=== PATIENT | female | born 1960 | race Caucasian/White ===

== ENCOUNTER 2020-05-27 05:38 | Inpatient (IN) ==
--- OUTSIDE RECORDS SUMMARY | 2020-05-27 05:41 | External Medical Summary | Continuity of Care Document ---
:1960 Author Name Jackie Daniels, Provider Address Unavailable Unavailable , Care Team Providers Name Role Phone Eduin Daniels, [email or web address] Desirae Daniels, Art Unavailable [email or web address] JINA REBOLLAR Unavailable Unavailable Unavailable Unavailable Unavailable Assessments Assessed Problems:Inflamed seborrheic keratosisSeborrheic keratosisAngioma Sebaceous hyperplasia Problems Encounter for routine gynecological exam ination with Papanicolaou smear of cervix (V72.31) (Z01.419) Severe cervical dysplasia (233.1) (D06.9) Fecal soiling (787.62) (R15.1) Positive sm/[employer] antibody (795.79) (R76.8) Classic migraine with aura (346.00) (G43.109) Depression (311) (F32.9) Postmenopausal disorder (627.9) (N95.1) Positive TAINA (antinuclear antibody) (795.79) (R76.8) Mixed connective tissue disease (710.8) (M35.1) Long-term use of hydroxychloroquine (V58.69) (Z79.899) Long-term current use of steroids (V58.65) Rosacea (695.3) (L71.9) Inflamed seborrheic keratosis (702.11) (L82.0) Seborrheic keratosis (702.19) (L82.1) Angioma (228.00) (D18.00) Sebaceous hyperplasia (706.8) (L73.8) Allergies and Adverse Reactions Sulfa Drugs (Allergy) Medications Hydroxychloroquine Sulfate 200 MG Oral Tablet; Take 1 tablet twice daily Jeremiah Denny Quantity: 180 Refills: 1 predniSONE 1 MG Oral Tablet; TAKE 4 TABLETS DAILY. Kiki Denny Quantity: 360 Refills: 1 Metrogel 0.75 % GEL; APPLY AND RUB IN A THIN FILM TO AFFECTED AREAS TWICE DAILY.(AM AND PM). Refills: 0 Premarin 0.625 MG/GM Vaginal Cream Refills: 0 Cymbalta 60 MG Oral Capsule Delayed Release Particles; TAKE 1 CAPSULE Daily Refills: 0 Fosamax 70 MG Oral Tablet Refills: 0 raNITIdine HCl 300 MG TABS Refills: 0 Tylenol TABS Refills: 0 Vitamin E TABS Refills: 0 Procedures History of Hysteroscopy With Endometrial Ablation Status: Completed History of Tubal Ligation Status: Comple diana History of Cervical Loop Electrosurgical Excision (LEEP) Status: Completed History of Cervix Cryosurgery Status: Co mpleted History of Laparoscopy (Diagnostic) Gynecologic With Biopsy Status: Completed History of Tonsillectomy Status: Complet ed History of Breast Surgery Enlargement Procedure With Prosthe tic Status: Completed Implant History of Complete Colonoscopy For Polyp Removal Status: Completed History of Episiotomy Status: Completed Immunizations Tdap (Adacel) On: 03-Oct-2007 Fluzone Quadrivalent 0.5 ML Intramuscular Suspension On: Feb-2016 Family History natural son Family history of Type 2 Diabetes Mellitus Status: Active Unknown Family Member Family history of Colon Cancer (V16.0) Status: Active C omments: Family History Social History - Smoking Status Ex-smoker Interventions Follow-ups/ReferralsFollow-up visit in 1 year; Done: 19 Jun 2018 Discussion/Summary1) ISK - Treated \{12\} lesions with liquid nitrogen today as above. Advised patient to wash gently with soap and water and apply vaseline to treated sites daily until healed. 2) Patient counseled and reassured on the benign nature of other lesions. No treatment needed. 3) I counseled the patient regarding the following: - Sunscreen (SPF 30 or greater) should be applied during peak UV exposure (between 10am and 2pm) and reapplied every 2 hours. It should also be reapplied after exercise or swimming. - The ABCDEs of melanoma were reviewed with the patient, and the importance of monthly self-examination of moles was emphasized. Should any moles change in shape or color, or itch, bleed or burn, patient will contact our office for evaluation sooner than their interval appointment. - Advised patient to call for sooner appointment if any lesions develop that are rapidly growing, bleeding or painful without manipulation, or not healing. \highlight0 Plan of Treatment Planned Observations Planned Goals not documented Results No Known Results Results not documented Encounters Appointment; Art Merrill M.D. 19-Jun-2018 10:30 Encounter Diagnosis: Problem not documented
--- OUTSIDE RECORDS SUMMARY | 2020-05-27 05:41 | External Medical Summary | Continuity of Care Document ---
:1960 Author Name Jackie Daniels, Provider Address Unavailable Unavailable , Care Team Providers Name Role Phone Eduin Daniels, [email or web address] Desirae Daniels, Art Unavailable [email or web address] JINA REBOLLAR Unavailable Unavailable Unavailable Unavailable Unavailable Assessments Assessed Problems:Inflamed seborrheic keratosisSeborrheic keratosisAngioma Sebaceous hyperplasia Problems Classic migraine with aura (346.00) (G43.109) Depression (311) (F32.9) Postmenopausal disorder (627.9) (N95.1) Positive TAINA (antinuclear antibody) (795.79) (R76.8) Mixed connective tissue disease (710.8) (M35.1) Long-term use of hydroxychloroquine (V58.69) (Z79.899) Long-term current use of steroids (V58.65) Rosacea (695.3) (L71.9) Encounter for routine gynecological exam ination with Papanicolaou smear of cervix (V72.31) (Z01.419) Severe cervical dysplasia (233.1) (D06.9) Fecal soiling (787.62) (R15.1) Positive sm/[employer] antibody (795.79) (R76.8) Inflamed seborrheic keratosis (702.11) (L82.0) Seborrheic keratosis (702.19) (L82.1) Angioma (228.00) (D18.00) Sebaceous hyperplasia (706.8) (L73.8) Allergies and Adverse Reactions Sulfa Drugs (Allergy) Medications Metrogel 0.75 % GEL; APPLY AND RUB IN A THIN FILM TO AFFECTED AREAS TWICE DAILY.(AM AND PM). Refills: 0 predniSONE 1 MG Oral Tablet; TAKE 4 TABLETS DAILY. Kiki Denny Quantity: 360 Refills: 1 Hydroxychloroquine Sulfate 200 MG Oral Tablet; Take 1 tablet twice daily Jeremiah Denny Quantity: 180 Refills: 1 Premarin 0.625 MG/GM Vaginal Cream Refills: 0 [...]
[2020-05-27] MEDS ORDERED: SODIUM CHLORIDE 0.9% 1000ML 1,000 ML IV ONE ×2 (05:59→07:46)
[2020-05-27] MEDS ORDERED: ONDANSETRON INJ 2 MG/ML 2 ML VIAL IV STA (05:59)
[2020-05-27] MEDS ORDERED: MoRPHine SULFATE 4 MG/ML 1 ML CARP\\VIAL IV STA (05:59)
--- NOTE | 2020-05-27 06:11 | Emergency Department Note ---
History of Present Illness General Chief complaint: Vomiting Stated complaint: VOMITING,PAIN IN BACK,SIDE AND ARM,RT FOOT NUMB Time Seen by Provider: 05/27/20 05:47 Source: patient Mode of arrival: ambulatory Limitations: no limitations History of Present Illness Maximum Pain Intensity: 8 This patient is a 60-year-old female who presents to the emergency department complaining of pain in her abdomen and back. She states that the pain started yesterday evening, about 9 hours prior to arrival. Pain came on gradually. She states that initially the pain felt like heartburn in her upper abdomen. She tried Tums and Pepcid without relief. She reports that her pain now feels like a cramping sensation in her upper abdomen which comes and goes. She has a 3/10 pain at this time but states it does worsen at times. Pain radiates into the back. She does note that she had some right arm pain and some numbness/cramping in her right foot. Patient reports she had a similar episode of pain several years ago but is unsure what caused it. She has a past medical history of lupus. She does admit to drinking 2-3 alcoholic beverages per day. She denies chest pain/shortness of breath, fevers, urinary symptoms or changes in bowel movements. Home Medications Medication Instructions Recorded Confirmed Type duloxetine 60 mg capsule,delayed 60 mg PO DAILY #30 cap 02/12/19 05/27/20 Rx release ergocalciferol (vitamin D2) 1,250 mcg PO WK 05/27/20 05/27/20 History famotidine 20 mg PO BID 05/27/20 05/27/20 History hydroxychloroquine See Rx Instructions .ROUTE .COMPLEX 05/27/20 05/27/20 History Allergies Allergy/AdvReac Type Severity Reaction Status Date / Time Sulfa (Sulfonamide Allergy Unknown Unknown Verified 05/27/20 08:55 Antibiotics) Past Med/Surg History Medical History (Updated 05/27/20 @ 09:00 by Elis Jenkins PA-C) Alcohol abuse Depression GERD (gastroesophageal reflux disease) Lupus Osteoporosis Vitamin D deficiency Surgical History Breast enlargement saline implants History of cryosurgery cervix S/P colonoscopic polypectomy S/P laparoscopy S/P LEEP (loop electrosurgical excision procedure) S/P tonsillectomy S/P tubal ligation Status post hysteroscopic ablation of endometrium Family History Son Type 1 diabetes Mother Connective tissue disease Osteoarthritis Osteoporosis Father Hypertension Social History (Updated 05/27/20 @ 09:02 by Elis Jenkins PA-C) Smoking Status: Former smoker Tobacco Type: Cigarettes Years Smoked: 5; Second Hand Exposure: No; Hx Alcohol Use: Yes Alcohol type: wine Alcohol Intake Frequency: 4 or More x per/Week Alcohol Intake Frequency Comment: 1 bottle of wine daily Hx Substance Use: Yes Substance Use Type Other:: edible as needed Preferred Language: Kiswahili Communication Ability: Effective Cd Mixer Required: No Beliefs That Will Affect Care: None marital status: Current Living Situation: Spouse Feels Safe at Home: Yes Assistive Devices: Cane, Glasses and Walker Review of Systems A total of 10 systems reviewed and were otherwise negative Physical Exam Vital Signs Vital Signs - 24 hr 05/27/20 05:40 05/27/20 06:13 05/27/20 07:07 Temperature 36.5 C Temperature Source Temporal Artery Scan Pulse Rate 66 96 H Pulse Rate [Bilateral Apical] 86 Pulse Rate from SpO2 Sensor 95 H Pulse Rhythm Regular Pulse Strength Normal Respiratory Rate 20 20 25 H Respiratory Effort / Characteristics Non-Labored Respiratory Depth Normal Blood Pressure 136/85 98/60 L Blood Pressure [Left Arm] 122/78 Blood Pressure Mean 102 72 Blood Pressure Mean [Left Arm] 92 Blood Pressure Position Sitting Pulse Oximetry 98 99 99 Oxygen Delivery Method Room Air Room Air Sepsis Recent Fever Within 48 Hours No Sepsis New/Unexplained Change in Mental Status N/A Sepsis Action Taken by Nursing No Action Required 05/27/20 08:00 05/27/20 08:01 Temperature Temperature Source Pulse Rate 99 H Pulse Rate [Bilateral Apical] Pulse Rate from SpO2 Sensor Pulse Rhythm Pulse Strength Respiratory Rate 22 Respiratory Effort / Characteristics Respiratory Depth Blood Pressure 149/81 H Blood Pressure [Left Arm] Blood Pressure Mean 103 Blood Pressure Mean [Left Arm] Blood Pressure Position Pulse Oximetry 97 99 Oxygen Delivery Method Room Air Sepsis Recent Fever Within 48 Hours Sepsis New/Unexplained Change in Mental Status Sepsis Action Taken by Nursing VITALS: Vitals are noted on the nurse's note and reviewed by myself. GENERAL: This is a 60-year-old female, uncomfortable appearing, well-developed well-nourished. SKIN: The skin was without rashes. EARS: External auditory canals clear, tympanic membranes pearly loera without erythema or effusion bilaterally. EYES: Pupils equal round and reactive to light and accommodation. No scleral icterus. MOUTH: Mucous membranes moist. Tonsils are not enlarged. Pharynx without erythema or exudate. NECK: Supple without nuchal rigidity. No lymphadenopathy. HEART: Regular rate and rhythm without murmurs gallops or rubs. LUNGS: Clear to auscultation bilaterally without wheezes, rales or rhonchi. ABDOMEN: Positive bowel sounds x 4. Moderate tenderness in the right upper quadrant and epigastric region. No guarding or rebound tenderness. NEURO: Patient was alert and oriented to person place and time. Course Consultations Consultation #1: Mari Jung PA-C - general surgery Administered Medications Ciprofloxacin/Dexamethasone (Cipro 0.3%/Dexamethasone 0.1% Otic Susp 7.5ml) 4 drops OT BID ANDREW Stop: 06/26/20 17:59 Last Admin: 05/27/20 18:55 Dose: 4 drops Documented by: [id number] Potassium Chloride/Sodium Chloride (Normal Saline W/20 Meq Kcl) 20 meq in 1,000 mls @ 125 mls/hr IV .Q8H ANDREW Stop: 06/26/20 08:14 Last Admin: 05/27/20 22:05 Dose: 125 mls/hr Documented by: [id number] Infusion: 05/27/20 22:05 Dose: 0 mls/hr Documented by: [id number] Infusion: 05/27/20 18:00 Dose: 125 mls/hr Documented by: [id number] Admin: 05/27/20 10:33 Dose: 90 mls/hr Documented by: [id number] Famotidine 20 mg/ Syringe 5 mls @ 2.5 mls/min IV BID ANDREW Stop: 06/26/20 09:14 Last Admin: 05/27/20 20:36 Dose: 2.5 mls/min Documented by: [id number] Admin: 05/27/20 10:32 Dose: 2.5 mls/min Documented by: [id number] Thiamine HCl 100 mg/ Syringe 10 mls @ 2 mls/min IV QAM ANDREW Stop: 06/26/20 09:12 Last Admin: 05/27/20 10:33 Dose: 2 mls/min Documented by: [id number] Folic Acid 1 mg/ Syringe 10 mls @ 5 mls/min IV QAM [facility] Stop: 06/26/20 09:12 Last Admin: 05/27/20 10:33 Dose: 5 mls/min Documented by: [id number] Ceftriaxone Sodium 2,000 mg/ (Dextrose) 70 mls @ 100 mls/hr IV Q24H [facility]; Protocol Stop: 06/01/20 17:59 Last Infusion: 05/27/20 18:45 Dose: 0 mls/hr Documented by: [id number] Admin: 05/27/20 18:01 Dose: 100 mls/hr Documented by: [id number] Acetaminophen (Ofirmev) 1,000 mg in 100 mls @ 400 mls/hr IV Q8H [facility] Stop: 05/30/20 17:59 Last Infusion: 05/27/20 18:44 Dose: 0 mls/hr Documented by: [id number] Admin: 05/27/20 18:11 Dose: 400 mls/hr Documented by: [id number] Morphine Sulfate (Morphine Sulfate 2 Mg/Ml Carp) 2 mg IV Q4H PRN PRN Reason: severe pain Stop: 06/10/20 09:12 Last Admin: 05/27/20 23:36 Dose: 2 mg Documented by: [id number] Admin: 05/27/20 20:35 Dose: 2 mg Documented by: [id number] Admin: 05/27/20 16:25 Dose: 2 mg Documented by: [id number] Phenol (Chloraseptic 1.4% Soln 180 Ml Btl) 2 sprays MT Q3H PRN PRN Reason: Sore Throat Stop: 06/26/20 12:32 Last Admin: 05/27/20 13:46 Dose: 2 sprays Documented by: [id number] Discontinued Medications Benzocaine/Butamben/Tetracaine HCl (Benzocain/Tetraca/Butam [place] 200 Appln/20 Gm [place]) Confirm Administered Dose 1 appln EXT .STK-MED ONE Stop: 05/27/20 08:04 Last Admin: 05/27/20 08:11 Dose: 1 appln Documented by: [id number] Sodium Chloride (Nss 1000ml) 1,000 mls @ 999 mls/hr IV .Q1H1M ONE Stop: 05/27/20 06:59 Last Infusion: 05/27/20 07:09 Dose: 0 mls/hr Documented by: [id number] Admin: 05/27/20 06:08 Dose: 999 mls/hr Documented by: [id number] Sodium Chloride (Nss 1000ml) 1,000 mls @ 999 mls/hr IV .Q1H1M ONE Stop: 05/27/20 08:46 Last Infusion: 05/27/20 12:58 Dose: 0 mls/hr Documented by: [id number] Admin: 05/27/20 08:11 Dose: 999 mls/hr Documented by: [id number] Acetaminophen (Ofirmev) 1,000 mg in 100 mls @ 400 mls/hr IV Q8H PRN PRN Reason: moderate pain Stop: 05/30/20 08:14 Last Infusion: 05/27/20 10:40 Dose: 0 mls/hr Documented by: [id number] Admin: 05/27/20 08:46 Dose: 400 mls/hr Documented by: [id number] Lorazepam (Ativan) 0.5 mg in 1 mls @ 1 mls/min IV NOW STA Stop: 05/27/20 08:22 Last Admin: 05/27/20 10:56 Dose: Not Given Documented by: [id number] Potassium Chloride (K Song / Wtr) 10 meq in 100 mls @ 100 mls/hr IV ONE ONE Stop: 05/27/20 09:59 Last Infusion: 05/27/20 15:00 Dose: 0 mls/hr Documented by: [id number] Admin: 05/27/20 13:48 Dose: 100 mls/hr Documented by: [id number] Ioversol (Ioversol 100ml) 94 ml IV ONCE ONE Stop: 05/27/20 07:01 Last Admin: 05/27/20 07:00 Dose: 94 ml Documented by: [id number] Lorazepam (Lorazepam 2 Mg/4 Ml Vial) Confirm Administered Dose 2 mg .ROUTE .STK- MED ONE Stop: 05/27/20 08:28 Last Admin: 05/27/20 08:44 Dose: 0.5 mg Documented by: [id number] Menthol (Cough Drop (Sugar Free) Jackie 24 Jackie/1 Box) 1 jackie BUCCAL NOW STA Stop: 05/27/20 18:00 Last Admin: 05/27/20 18:08 Dose: 1 jackie Documented by: [id number] Morphine Sulfate (Morphine Sulfate 4 Mg/Ml 1 Ml Carp\Vial) 4 mg IV NOW STA Stop: 05/27/20 06:00 Last Admin: 05/27/20 06:08 Dose: 4 mg Documented by: [id number] Ondansetron HCl (Ondansetron Inj 2 Mg/Ml 2 Ml Vial) 4 mg IV NOW STA Stop: 05/27/20 06:00 Last Admin: 05/27/20 06:09 Dose: 4 mg Documented by: [id number] Medical Decision Making Differential Diagnosis Differential diagnosis includes appendicitis, diverticulitis, bowel obstruction, inflammatory bowel disease, renal colic, PUD, biliary pathology, pancreatitis, mesenteric ischemia, aortic pathology, infection, genitourinary, UTI, perforated viscus, among others. Home Medications Current Medication List: was personally reviewed by me Laboratory Data Attestation: I reviewed the patient's lab results. Result diagrams: 05/27/20 06:00 05/27/20 06:00 Lab Results 05/27/20 05/27/20 05/27/20 Range/Units 06:00 06:00 06:05 WBC 9.46 (4.8-10.8) K/uL RBC 4.64 (4.2-5.4) M/uL Hgb 14.9 (12.0-16.0) g/dL Hct 43.3 (37-47) % MCV 93.3 (80-100) fL MCH 32.1 (25-34) pg MCHC 34.4 (32-36) g/dL RDW Std Deviation 47.3 H (36.4-46.3) fL RDW Coeff of Negrito 13.9 (11.5-14.5) % Plt Count 390 (130-400) K/uL MPV 9.6 (7.4-10.4) fL Immature Gran % (Auto) 0.2 % Neut % (Auto) 86.6 % Lymph % (Auto) 6.9 % [place] % (Auto) 5.9 % Eos % (Auto) 0.1 % Baso % (Auto) 0.3 % Neut # (Auto) 8.19 H (1.4-6.5) K/uL Lymph # (Auto) 0.65 L (1.2-3.4) K/uL [place] # (Auto) 0.56 (0.11-0.59) K/uL Eos # (Auto) 0.01 (0-0.5) K/uL Baso # (Auto) 0.03 (0-0.2) K/uL Immature Gran # (Auto) 0.02 (0.00-0.02) K/uL Sodium 139 (136-145) mmol/L Potassium 3.4 L (3.5-5.1) mmol/L Chloride 104 (98-107) mmol/L Carbon Dioxide 28 (21-32) mmol/L Anion Gap 8.0 (3-11) BUN 15 (7-18) mg/dl Creatinine 1.01 (0.6-1.2) mg/dl Est Cr Clr Drug Dosing 52.2 ml/min Est GFR ( Amer) 69.6 Est GFR (Non-Af Amer) 60.0 BUN/Creatinine Ratio 14.4 (10-20) Glucose 137 H (70-99) mg/dl Calcium 9.7 (8.5-10.1) mg/dl Total Bilirubin 0.9 (0.2-1) mg/dl AST 13 L (15-37) U/L ALT 18 (12-78) U/L Alkaline Phosphatase 78 (45-117) U/L Total Protein 8.7 H (6.4-8.2) gm/dl Albumin 5.0 (3.4-5.0) gm/dl Globulin 3.7 (2.5-4.0) gm/dl Albumin/Globulin Ratio 1.3 (0.9-2) Lipase 100 (73-393) U/L Hepatitis C Ab Screen Neg (Neg) Imaging Data Attestation: I personally reviewed and interpreted this imaging study as follows: Radiologist's Impression: CT OF THE ABDOMEN AND PELVIS WITH CONTRAST FINDINGS: Bilateral breast implants are partially imaged. There is minimal ground glass opacity within the lower lobes. No pneumatosis, free air or portal venous gas is present. There are multiple indeterminate hepatic lesions that measure above water motion. The largest is a 1.8 cm segment 6 lesion. This may have minimal peripheral nodular enhancement. There is no biliary or pancreatic ductal dilatation. There is no peripancreatic or pericholecystic infiltration. The spleen, adrenal glands and kidneys are normal. There is no hydronephrosis. The stomach is fluid-filled and mildly distended. The proximal to mid small bowel is moderately dilated and fluid-filled. Small bowel measure up to 3.7 cm in caliber. There is pronounced swirling of the small bowel loops with transition point within the upper pelvis on axial image 317 of 421. There is stool within the small bowel. Distal small bowel is decompressed. This represents a high-grade small bowel obstruction. The appendix is normal. There is no lymphadenopathy. Major vasculature is patent. There is no ascites. There is no abscess. No suspicious osseous lesions are present. IMPRESSION: 1. Moderately dilated fluid-filled proximal to mid small bowel with swirling of the small bowel loops and mesentery with transition point within the upper pelvis. This represents a high-grade small bowel obstruction. The appearance raises the possibility of an internal hernia although adhesions can result in a similar imaging appearance. Surgical consultation is recommended. No pneumatosis, free air or portal venous gas. No bowel wall thickening. 2. Several indeterminate hepatic lesions. The largest lesion may reflect a hemangioma however a neoplastic etiology cannot be excluded. Nonemergent liver MRI is recommended. ECG Data Attestation: I personally reviewed and interpreted this ECG as follows: Indication: + abdominal pain Rate (beats per minute): 75 Rhythm: + normal sinus ECG Intervals/blocks: + Normal QRS ECG ST segments: + Normal ST segments Change: no significant change MDM Narrative Continuous property assessment monitor: Order was placed for continuous property assessment monitor. Patient was placed on the property assessment monitor. Patient was noted to be in normal sinus rhythm at an initial rate of 66 bpm. The patient is a 60-year-old female who presents today complaining of upper abdominal pain and vomiting. Labs revealed no leukocytosis, anemia or concernin g electrolyte abnormalities. Patient treated with morphine, Zofran and IV fluids with significant relief. A CT scan was performed and shows findings consistent with a high-grade small bowel obstruction with possible internal hernia. NG tube was placed. Patient received 2 L of IV fluids in the ER. General surgery was consulted to evaluate the patient. Medicine was called for admission. Impression & Plan Small bowel obstruction, Internal hernia Discharge Plan Visit Data Chief Complaint: Vomiting Stated Complaint: VOMITING,PAIN IN BACK,SIDE AND ARM,RT FOOT NUMB ED Provider: Jairon Bowie ED Midlevel Provider: Verenice Man Discharge Problem: Small bowel obstruction, Internal hernia Patient Disposition: Admitted As Inpatient Discharge Instructions Interventions: ED Discharge Assessment Last Done: 05/27/20 12:27
[2020-05-27 06:15] LABS: Basophils # (auto) 0.03 K/uL (0-0.2); Basophils % (auto) 0.3 %; Eosinophils # (auto) 0.01 K/uL (0-0.5); Eosinophils % (auto) 0.1 %; Hematocrit (blood only) 43.3 % (37-47); Hemoglobin 14.9 g/dL (12.0-16.0); Immature Granulocytes # (auto) 0.02 K/uL (0.00-0.02); Immature Granulocytes % (auto) 0.2 %; Lymphocytes # (auto) 0.65 K/uL (1.2-3.4); Lymphocytes % (auto) 6.9 %; Mean Corpuscular Hemoglobin 32.1 pg (25-34); Mean Corpuscular Hgb Conc 34.4 g/dL (32-36); Mean Corpuscular Volume 93.3 fL (80-100); Mean Platelet Volume 9.6 fL (7.4-10.4); Monocytes # (auto) 0.56 K/uL (0.11-0.59); Monocytes % (auto) 5.9 %; Neutrophils # (auto) 8.19 K/uL (1.4-6.5); Neutrophils % (auto) 86.6 %; Platelet Count 390 K/uL (130-400); RDW Coefficient of Variation 13.9 % (11.5-14.5); RDW Standard Deviation 47.3 fL (36.4-46.3); Red Blood Count 4.64 M/uL (4.2-5.4); White Blood Count 9.46 K/uL (4.8-10.8)
[2020-05-27 06:30] LABS: BUN Creatinine Ratio 14.4 (10-20); Calcium 9.7 mg/dl (8.5-10.1); Creatinine Clr Calc Pharmacy 52.2 ml/min; Est GFR (African American) 69.6; Potassium 3.4 mmol/L (3.5-5.1)
[2020-05-27 06:33] LABS: Albumin Globulin Ratio 1.3 (0.9-2); Bilirubin,Total 0.9 mg/dl (0.2-1); Globulin 3.7 gm/dl (2.5-4.0); Total Protein 8.7 gm/dl (6.4-8.2)
[2020-05-27] MEDS ORDERED: OPTIRAY 320 100ml IV ONE (07:00)
--- NOTE | 2020-05-27 07:39 | CT Scan Report ---
CT OF THE ABDOMEN AND PELVIS WITH CONTRAST CLINICAL HISTORY: Upper abdominal pain and vomiting. COMPARISON STUDY: None. TECHNIQUE: Following IV administration of 94 mL of Optiray-320, axial images of the abdomen and pelvi s were obtained from the lung bases to the proximal femurs. Images were reviewed in the axial, sagitt al, and coronal planes. IV contrast was administered without complication. Automated exposure contro l was utilized for the study. A dose lowering technique was utilized adhering to the principles of A JIGNESH. CT DOSE: 277.59 mGy.cm FINDINGS: Bilateral breast implants are partially imaged. There is minimal ground glass opacity withi n the lower lobes. No pneumatosis, free air or portal venous gas is present. There are multiple indet erminate hepatic lesions that measure above water motion. The largest is a 1.8 cm segment 6 lesion. T his may have minimal peripheral nodular enhancement. There is no biliary or pancreatic ductal dilatat ion. There is no peripancreatic or pericholecystic infiltration. The spleen, adrenal glands and kidne ys are normal. There is no hydronephrosis. The stomach is fluid-filled and mildly distended. The prox imal to mid small bowel is moderately dilated and fluid-filled. Small bowel measure up to 3.7 cm in c aliber. There is pronounced swirling of the small bowel loops with transition point within the upper pelvis on axial image 317 of 421. There is stool within the small bowel. Distal small bowel is decomp ressed. This represents a high-grade small bowel obstruction. The appendix is normal. There is no lym phadenopathy. Major vasculature is patent. There is no ascites. There is no abscess. No suspicious os seous lesions are present. IMPRESSION: 1. Moderately dilated fluid-filled proximal to mid small bowel with swirling of the small bowel loops and mesentery with transition point within the upper pelvis. This represents a high-grade small dalia l obstruction. The appearance raises the possibility of an internal hernia although adhesions can res ult in a similar imaging appearance. Surgical consultation is recommended. No pneumatosis, free air o r portal venous gas. No bowel wall thickening. 2. Several indeterminate hepatic lesions. The largest lesion may reflect a hemangioma however a neopl astic etiology cannot be excluded. Nonemergent liver MRI is recommended. ACT 112: Positive. There are findings on this exam that require communication between the performing entity and the patient following Patient Test Result Information Act ([place] Act 112) guidelines. Electronically signed by: Ian Rebolledo M.D. 05/27/2020 7:37 AM
[2020-05-27] MEDS ORDERED: CANNULA ONE (08:02)
[2020-05-27] MEDS ORDERED: BENZOCAIN/TETRACA/BUTAM SPRAY 200 APPLN/20 GM SPRY EXT ONE (08:03)
[2020-05-27] MEDS ORDERED: ACETAMINOPHEN 1,000 MG/100 ML VIAL IV PRN (08:15)
[2020-05-27] MEDS ORDERED: LORazepam 0.5 MG/1 ML VIAL IV STA (08:21)
[2020-05-27] MEDS ORDERED: LORazepam 2 MG/4 ML VIAL ONE (08:27)
--- NOTE | 2020-05-27 08:42 | Surgery Consultation ---
Date of Consultation May 27, 2020 Assessment & Plan (1) Small bowel obstruction: This is a 60yF with a PMH of lupus who presented to the [facility] ED on 05/27/20 with complaints of abdominal pain, nausea/vomiting starting yesterday evening. Workup in the ER with a CT a/p revealed a moderately dilated fluid-filled proximal to mid small bowel with swirling of the small bowel loops and mesentery with transition point within the upper pelvis, representing a high-grade small bowel obstruction. Per radiology the appearance raises the possibility of an internal hernia although adhesions can result in a similar imaging appearance. Blood work shows a WBC: 9, Cr: 1.01. Vitals with HR 90's. Patient's only abdominal surgical history is a tubal ligation. On examination patient's abdomen is currently soft, non tender, non distended. She had an NGT placed prior to me entering the room and she has a lot of discomfort related to that. An anesthetic was given to the back of her throat with minimal relief. After my interview she appeared a little bit more comfortable and gagging with it much less. For now we will give patient a trial of conservative management and see how she fairs with bowel rest and NGT decompression. We will keep a close eye on the patient should she deteriorate and necessitate surgical intervention. Appreciate hospitalist helping us out with patient for her admission. as above. feeling much better already. no abdominal pain. no nausea. only c/o currently is NGT abd: soft. nt. will keep ngt. IVF. recheck KUB tomorrow. no urgent indication for surgical intervention History of Present Illness History of Present Illness This is a 60yF with a PMH of lupus who presented to the [facility] ED on 05/27/20 with complaints of abdominal pain, nausea/vomiting. Patient reports her abdominal discomfort started around 8pm yesterday evening after dinner. Her dinner consisted of roast chicken, stuffing, and cranberry sauce. She initially thought she was experiencing heartburn, but after trying antacids without relief she developed pain in her R side, stomach, and back. She starting having nausea and vomiting, up to 8-9 times. She is unsure if there was blood in the emesis as she ate cranberry sauce at dinner. As symptoms progressed she decided to come into the ER for further evaluation. In the ER patient underwent a CT a/p that revealed a moderately dilated fluid-filled proximal to mid small bowel with swirling of the small bowel loops and mesentery with transition point within the upper pelvis, representing a high-grade small bowel obstruction. Per radiology the appearance raises the possibility of an internal hernia although adhesions can result in a similar imaging appearance. Patient endorses + constipation, her last BM was yesterday, but says he stools have been more thin in caliber. She is not passing flatus. Her past abdominal surgical history includes a tubal ligation 20 years ago and an endometrial ablation. She rated her pain a 9/10 at its worse, but now after receiving morphine it is currently controlled. Allergies Allergy/AdvReac Type Severity Reaction Status Date / Time Sulfa (Sulfonamide Allergy Unknown Unknown Verified 05/27/20 08:55 Antibiotics) Home Medications Medication Instructions Recorded Confirmed Type duloxetine 60 mg capsule,delayed 60 mg PO DAILY #30 cap 02/12/19 05/27/20 Rx release ergocalciferol (vitamin D2) 1,250 mcg PO WK 05/27/20 05/27/20 History famotidine 20 mg PO BID 05/27/20 05/27/20 History hydroxychloroquine See Rx Instructions .ROUTE .COMPLEX 05/27/20 05/27/20 History Patient History Medical History (Updated 05/27/20 @ 09:00 by Elis Jenkins PA-C) Alcohol abuse Depression GERD (gastroesophageal reflux disease) Lupus Osteoporosis Vitamin D deficiency Surgical History Breast enlargement saline implants History of cryosurgery cervix S/P colonoscopic polypectomy S/P laparoscopy S/P LEEP (loop electrosurgical excision procedure) S/P tonsillectomy S/P tubal ligation Status post hysteroscopic ablation of endometrium Family History Son Type 1 diabetes Mother Connective tissue disease Osteoarthritis Osteoporosis Father Hypertension Social History (Updated 05/27/20 @ 09:02 by Elis Jenkins PA-C) Smoking Status: Former smoker Tobacco Type: Cigarettes Years Smoked: 5; Second Hand Exposure: No; Do You Dip or Chew Tobacco: No; Tobacco Cessation Education Requested by Patient: No Hx Alcohol Use: Yes Alcohol type: wine Alcohol Intake Frequency: 4 or More x per/Week Alcohol Intake Frequency Comment: 1 bottle of wine daily Preferred Language: South Korean Communication Ability: Effective marital status: Current Living Situation: Spouse Review of Systems Constitutional: + chills and + sweats; no fever Respiratory: + dyspnea Cardiovascular: + chest pain Gastrointestinal: + abdominal pain, + bloating, + nausea, + vomiting, + change in stools (thin caliber) and + constipation Physical Exam Physical Exam: awake/alert Constitutional: well developed and well nourished in discomfort related to recent NGT placement Respiratory: normal respiratory effort Gastrointestinal (Abdomen): Inspection/Auscultation: abdomen not distended Percussion/Palpation: abdomen soft; abdomen nontender Results & Data ([facility]) Vital Signs (Past 12 Hours) Vital Signs Temp Pulse Pulse Resp BP BP Pulse Ox 05/27/20 08:00 97 05/27/20 07:07 96 H 25 H 98/60 L 99 05/27/20 06:13 86 20 122/78 99 05/27/20 05:40 36.5 C 66 20 136/[address] OF THE ABDOMEN AND PELVIS WITH CONTRAST CLINICAL HISTORY: Upper abdominal pain and vomiting. COMPARISON STUDY: None. TECHNIQUE: Following IV administration of 94 mL of Optiray-320, axial images of the abdomen and pelvis were obtained from the lung bases to the proximal femurs. Images were reviewed in the axial, sagittal, and coronal planes. IV contrast was administered without complication. Automated exposure control was utilized for the study. A dose lowering technique was utilized adhering to the principles of ALARA. CT DOSE: 277.59 mGy.cm FINDINGS: Bilateral breast implants are partially imaged. There is minimal ground glass opacity within the lower lobes. No pneumatosis, free air or portal venous gas is present. There are multiple indeterminate hepatic lesions that measure above water motion. The largest is a 1.8 cm segment 6 lesion. This may have minimal peripheral nodular enhancement. There is no biliary or pancreatic ductal dilatation. There is no peripancreatic or pericholecystic infiltration. The spleen, adrenal glands and kidneys are normal. There is no hydronephrosis. The stomach is fluid-filled and mildly distended. The proximal to mid small bowel is moderately dilated and fluid-filled. Small bowel measure up to 3.7 cm in caliber. There is pronounced swirling of the small bowel loops with transition point within the upper pelvis on axial image 317 of [id number]. There is stool within the small bowel. Distal small bowel is decompressed. This represents a high-grade small bowel obstruction. The appendix is normal. There is no lymphadenopathy. Major vasculature is patent. There is no ascites. There is no abscess. No suspicious osseous lesions are present IMPRESSION: 1. Moderately dilated fluid-filled proximal to mid small bowel with swirling of the small bowel loops and mesentery with transition point within the upper pelvis. This represents a high-grade small bowel obstruction. The appearance raises the possibility of an internal hernia although adhesions can result in a similar imaging appearance. Surgical consultation is recommended. No pneumatosis, free air or portal venous gas. No bowel wall thickening. 2. Several indeterminate hepatic lesions. The largest lesion may reflect a hemangioma however a neoplastic etiology cannot be excluded. Nonemergent liver MRI is recommended. ACT 112: Positive. There are findings on this exam that require communication between the performing entity and the patient following Patient Test Result Information Act ([place] Act 112) guidelines. Electronically signed by: Ian Rebolledo M.D. 05/27/2020 7:37 AM PG Care Time/CCT Total # of Minutes Spent Total Time Spent with Patient: Total time spent is greater than 50% in coordination of care (as documented) at patient's floor/unit and/or counseling patient: Coding Level of Care Code 11021 Initial Inpt Care Lvl 3 Diagnoses Small bowel obstruction K56.609
[2020-05-27] MEDS ORDERED: POTASSIUM CHLORIDE / WTR 10 MEQ/100 ML PLCT IV ONE (09:00)
--- NOTE | 2020-05-27 09:10 | History & Physical Report ---
Date of Service May 27, 2020 Assessment & Plan (1) Small bowel obstruction: This is a 60-year-old female who has significant past medical history of lupus, osteoporosis, GERD, depression, alcohol abuse who presents to ED secondary to abdominal pain x9 hours. CT a/p: Moderately dilated fluid-filled proximal to mid small bowel with swirling of the small bowel loops and mesentery with transition point within the upper pelvis. This represents a high-grade small bowel obstruction. The a ppearance raises the possibility of an internal hernia although adhesions can result in a similar imaging appearance NGT placed in ED, seen and eval by surg admit to [facility] conservative management at this time - bowel rest, NGT with LIS received 2 L of IVF in ED continue IVF 90cc/hr with 20meq KCL Hypokalemia K 3.4 give 10meq K rider in ED also supplement in IVF repeat in a.m. Alcohol Abuse drinks 1 bottle of wine daily given NPO status will be unable to give prophylaxis gabapentin place on AWSS protocol with prn ativan, high risk for withdrawal IV thiamine and folic acid, convert to PO when able to tolerate Lupus hydroxychloroquine on hold given NPO status resume when able Abnormal finding of CT a/p Several indeterminate hepatic lesions. The largest lesion may reflect a hemangioma however a neoplastic etiology cannot be excluded. Nonemergent liver MRI is recommended. Elevated Glucose on routine lab work obtain a1c in a.m. to screen to T2DM Gerd IV pepcid BID Dispo: med tele PCP: Cori FULL CODE Dvt ppx: Lovenox 30mg SQ daily Pt was seen and examined in collaboration with Dr. Pritchard, please see addendum History of Present Illness Chief Complaint: Abdominal pain x9 hours. Primary Care Provider: Megan Persaud, DO This is a 60-year-old female who has significant past medical history of lupus, osteoporosis, GERD, depression, alcohol abuse who presents to ED secondary to abdominal pain x9 hours. Pain started shortly after eating dinner last evening located mostly in right upper quadrant and radiated around back. Pain was constant but gradually worsened throughout the evening. She then developed nausea and significant vomiting. She recalls having similar symptoms approximately 2 years ago when out in [place]. At that time she had x-ray and there was concern for possible small bowel obstruction but she did not require hospitalization and symptoms resolved on own. She denies any recent fever, chills, sweats, lightheadedness, dizziness, chest pain, shortness breath, cough, URI symptoms, melena, medic easier, dysuria, increased urgency or frequency with urination, hematemesis. She has not had a normal bowel movement in the past 3 to 4 days. Her last BM was yesterday but was very small. is at bedside and states that she has been having off-and-on constipation for the past year. He relates this to her connective tissue disease. Her appetite has otherwise been poor. She does drink significant alcohol approximately 1 bottle of wine daily. Last drink was yesterday.In ED work-up revealed moderately dilated fluid-filled proximal to mid small bowel with swirling of the small bowel loops and mesentery with transition point in upper pelvis. High-grade small bowel obstruction is likely. Also noted with several indeterminate hepatic lesions and a nonemergent liver MRI is recommended. She received IV fluid and IV morphine which improved pain. NG tube was also placed although patient tolerating poorly secondary to gagging and dry mouth. She did receive IV Ativan to assist with this. She was seen and evaluated by general surgery who is recommending conservative management at this time with bowel rest and NG tube. Allergies Allergy/AdvReac Type Severity Reaction Status Date / Time Sulfa (Sulfonamide Allergy Unknown Unknown Verified 05/27/20 08:55 Antibiotics) Home Medications Medication Instructions Recorded Confirmed Type duloxetine 60 mg capsule,delayed 60 mg PO DAILY #30 cap 02/12/19 05/27/20 Rx release ergocalciferol (vitamin D2) 1,250 mcg PO WK 05/27/20 05/27/20 History famotidine 20 mg PO BID 05/27/20 05/27/20 History hydroxychloroquine See Rx Instructions .ROUTE .COMPLEX 05/27/20 05/27/20 History Past Med/Surg History Medical History (Updated 05/27/20 @ 09:00 by Elis Jenkins PA-C) Alcohol abuse Depression GERD (gastroesophageal reflux disease) Lupus Osteoporosis Vitamin D deficiency Surgical History Breast enlargement saline implants History of cryosurgery cervix S/P colonoscopic polypectomy S/P laparoscopy S/P LEEP (loop electrosurgical excision procedure) S/P tonsillectomy S/P tubal ligation Status post hysteroscopic ablation of endometrium Family History Son Type 1 diabetes Mother Connective tissue disease Osteoarthritis Osteoporosis Father Hypertension Social History (Updated 05/27/20 @ 09:02 by Elis Jenkins PA-C) Smoking Status: Former smoker Tobacco Type: Cigarettes Years Smoked: 5; Second Hand Exposure: No; Do You Dip or Chew Tobacco: No; Tobacco Cessation Education Requested by Patient: No Hx Alcohol Use: Yes Alcohol type: wine Alcohol Intake Frequency: 4 or More x per/Week Alcohol Intake Frequency Comment: 1 bottle of wine daily Preferred Language: Norwegian Communication Ability: Effective marital status: Current Living Situation: Spouse Review of Systems Review of Systems: All systems reviewed & are unremarkable except as noted in HPI & below Physical Exam Physical Exam: Constitutional: Thin, WD, F, vitals as above, NAD, sitting up in bed, answers questions appropriately Head: Normocephalic, Atraumatic Eyes: PERRL, conjunctivae normal, anicteric sclerae ENMT: external ear and nose normal, +NGT in place, oropharynx normal dry mouth Neck: trachea midline, no thyromegaly normal visual inspection Respiratory: normal respiratory effort, lungs clear to auscultation, no wheeze, rales, rhonchi. Normal insp/exp effort, no accessory muscle use Cardiovascular: RRR, no murmur, no edema Vessels: no JVD or carotid bruit Chest: normal inspection of chest Abdomen: absent bowel sounds, soft, nontender, no hepatosplenomegaly appreciated Musculoskeletal: no cyanosis or clubbing, extremities motor strength 5/5 Skin: no rashes, warm and dry normal turgor Neurologic: PERRL, EOMI, accommodation nl, no face palsy, no dysarthria CN's II-XI intact bilaterally and moves all extremities Psychiatric: A+Ox3, euthymic affect Lymphatic: no cervical or axillary lymphadenopathy : deferred Results & Data Results & Data ([facility]) Vital Signs (Past 12 Hours) Vital Signs Temp Pulse Pulse Resp BP BP Pulse Ox 05/27/20 08:31 97 H 17 110/73 98 05/27/20 08:01 99 H 22 149/81 H 99 03/23/21 08:00 97 05/27/20 07:07 96 H 25 H 98/60 L 99 05/27/20 06:13 86 20 122/78 99 05/27/20 05:40 36.5 C 66 20 136/[address] A/P: IMPRESSION: 1. Moderately dilated fluid-filled proximal to mid small bowel with swirling of the small bowel loops and mesentery with transition point within the upper pelvis. This represents a high-grade small bowel obstruction. The appearance raises the possibility of an internal hernia although adhesions can result in a similar imaging appearance. Surgical consultation is recommended. No pneumatosis, free air or portal venous gas. No bowel wall thickening. 2. Several indeterminate hepatic lesions. The largest lesion may reflect a hemangioma however a neoplastic etiology cannot be excluded. Nonemergent liver MRI is recommended. Medications Administered Acetaminophen (Ofirmev) 1,000 mg in 100 mls @ 400 mls/hr IV Q8H PRN PRN Reason: moderate pain Stop: 05/30/20 08:14 Last Admin: 05/27/20 08:46 Dose: 400 mls/hr Documented by: [id number] Discontinued Medications Benzocaine/Butamben/Tetracaine HCl (Benzocain/Tetraca/Butam [place] 200 Appln/20 Gm [place]) Confirm Administered Dose 1 appln EXT .STK-MED ONE Stop: 05/27/20 08:04 Last Admin: 05/27/20 08:11 Dose: 1 appln Documented by: [id number] Sodium Chloride (Nss 1000ml) 1,000 mls @ 999 mls/hr IV .Q1H1M ONE Stop: 05/27/20 06:59 Last Infusion: 05/27/20 07:09 Dose: 0 mls/hr Documented by: [id number] Admin: 05/27/20 06:08 Dose: 999 mls/hr Documented by: [id number] Sodium Chloride (Nss 1000ml) 1,000 mls @ 999 mls/hr IV .Q1H1M ONE Stop: 05/27/20 08:46 Last Admin: 05/27/20 08:11 Dose: 999 mls/hr Documented by: [id number] Ioversol (Ioversol 100ml) 94 ml IV ONCE ONE Stop: 05/27/20 07:01 Last Admin: 05/27/20 07:00 Dose: 94 ml Documented by: [id number] Lorazepam (Lorazepam 2 Mg/4 Ml Vial) Confirm Administered Dose 2 mg .ROUTE .STK- MED ONE Stop: 05/27/20 08:28 Last Admin: 05/27/20 08:44 Dose: 0.5 mg Documented by: [id number] Morphine Sulfate (Morphine Sulfate 4 Mg/Ml 1 Ml Carp\Vial) 4 mg IV NOW STA Stop: 05/27/20 06:00 Last Admin: 05/27/20 06:08 Dose: 4 mg Documented by: [id number] Ondansetron HCl (Ondansetron Inj 2 Mg/Ml 2 Ml Vial) 4 mg IV NOW STA Stop: 05/27/20 06:00 Last Admin: 05/27/20 06:09 Dose: 4 mg Documented by: [id number] ECG Rate (beats per minute): 75 Rhythm: normal sinus COVID-19 Results Results COVID-19 Adm Lab Results: RBC 4.64 M/uL (4.2-5.4) 05/27/20 WBC 9.46 K/uL (4.8-10.8) 05/27/20 Hgb 14.9 g/dL (12.0-16.0) 05/27/20 Hct 43.3 % (37-47) 05/27/20 Plt Count 390 K/uL (130-400) 05/27/20 Neutrophils (%) (Auto) 86.6 % 05/27/20 Lymphocytes (%) (Auto) 6.9 % 05/27/20 Monocytes # (Auto) 0.56 K/uL (0.11-0.59) 05/27/20 Eosinophils # (Auto) 0.01 K/uL (0-0.5) 05/27/20 Immature Granulocyte % (Auto) 0.2 % 05/27/20 Neutrophils # (Auto) 8.19 K/uL (1.4-6.5) H 05/27/20 Lymphocytes # (Auto) 0.65 K/uL (1.2-3.4) L 05/27/20 Monocytes # (Auto) 0.56 K/uL (0.11-0.59) 05/27/20 Eosinophils # (Auto) 0.01 K/uL (0-0.5) 05/27/20 Basophils # (Auto) 0.03 K/uL (0-0.2) 05/27/20 Immature Granulocyte # (Auto) 0.02 K/uL (0.00-0.02) 05/27/20 Na 139 mmol/L (136-145) 05/27/20 K 3.4 mmol/L (3.5-5.1) L 05/27/20 Cl 104 mmol/L (98-107) 05/27/20 CO2 28 mmol/L (21-32) 05/27/20 Anion Gap 8.0 (3-11) 05/27/20 BUN 15 mg/dl (7-18) 05/27/20 Creatinine 1.01 mg/dl (0.6-1.2) 05/27/20 BUN/Creatinine Ratio 14.4 (10-20) 05/27/20 Glucose Level 137 mg/dl (70-99) H 05/27/20 Ca 9.7 mg/dl (8.5-10.1) 05/27/20 Total Bilirubin 0.9 mg/dl (0.2-1) 05/27/20 AST/SGOT 13 U/L (15-37) L 05/27/20 ALT/SGPT 18 U/L (12-78) 05/27/20 Alkaline Phosphatase 78 U/L (45-117) 05/27/20 Total Protein 8.7 gm/dl (6.4-8.2) H 05/27/20 Albumin 5.0 gm/dl (3.4-5.0) 05/27/20 Globulin 3.7 gm/dl (2.5-4.0) 05/27/20 Albumin/Globulin Ratio 1.3 (0.9-2) 05/27/20 COVID-19 PCR NEGATIVE (Negative) 05/27/20 Influenza Virus Type A (PCR) Negative (Neg) 05/27/20 Influenza Virus Type B (PCR) Negative (Neg) 05/27/20 Code Status & VTE Plan Code Status Full Code VTE Prophylaxis Plan VTE Prophylaxis will be ordered: Yes Supervising Physician Co-Signing Physician Notes Attending note : pt seen and examined at bedside care coordinated with Elis HAYES 60 yo F with complex medical hx as outlined above presented with abdominal pain /N/V CT abdomen/pelvis : high grade small bowel obstruction no prior hx of bowel surgery ,had similar episode few years back , was noted to have low grade SBO , resolved with bowel rest and IVF no evidence of sepsis symptoms of abdominal pain /nausea improved with NG suction , continued appreciate input from Surgery team cont close monitoring with conservative approach with NPO , IV hydration , IV Tylenol as needed , try to avoid narcotic pain meds( risk for illeus ) P/E : as per H&P please refer to further documentation by Ronit Jenkins PA-C for discussion of other medical issues Jojo Pritchard MD
[2020-05-27] MEDS ORDERED: LORazepam 1 MG/2 ML VIAL IV PRN (09:13)
[2020-05-27] MEDS ORDERED: ONDANSETRON INJ 2 MG/ML 2 ML VIAL IV PRN (09:13)
[2020-05-27 09:37] LABS: Influenza A virus by PCR Negative (Neg); Influenza B virus by PCR Negative (Neg); RSV by PCR Negative (Neg); SARS CoV2 RNA(COVID-19) InHosp NEGATIVE (Negative)
[2020-05-27] MEDS: FAMOTIDINE 20 MG in SYRINGE 3 ML IV SCH ×2 (10:32→20:36)
[2020-05-27] MEDS: THIAMINE HCL 100 MG in SYRINGE 9 ML IV SCH (10:33)
[2020-05-27] MEDS: NSS + 20MEQ KCL 20 MEQ/1,000 ML BAG IV SCH ×2 (10:33→22:05)
[2020-05-27] MEDS: FOLIC ACID 1 MG in SYRINGE 9.8 ML IV SCH (10:33)
[2020-05-27] MEDS ORDERED: CHLORASEPTIC 1.4% SOLN 180 ML BTL MT PRN (12:33)
--- NOTE | 2020-05-27 14:35 | Electrocardiogram Report ---
Test Reason : Blood Pressure : / mmHG Vent. Rate : 075 BPM Atrial Rate : 075 BPM P-R Int : 124 ms QRS Dur : 076 ms QT Int : 400 ms P-R-T Axes : 045 054 063 degrees QTc Int : 446 ms Normal sinus rhythm Normal ECG When compared with ECG of 24-FEB-2011 06:25, No significant change was found Confirmed by Crow Urena ([id number]) on 05/27/2020 2:34:58 PM Referred By: REFERRED SELF Confirmed By:Dat Urena
[2020-05-27 15:21] LABS: Appearance Urine Cloudy (Clear); Bacteria Urine Automated 3+ (Negative); Bilirubin Urine Negative (Negative); Blood Urine Negative (Negative); Color Urine Yellow; Epithelial Cell Urine Auto 20-30 /lpf (0-5); Glucose Urine UA Negative (Negative); Ketones Urine Trace (Negative); Leukocyte Esterase Urine Negative (Negative); Nitrite Urine Negative (Negative); Protein Urine Trace (Negative); RBC Urine Automated 0-4 /hpf (0-4); Specific Gravity Urine > 1.045 (1.000-1.030); Urobilinogen Urine Negative (Negative); pH Urine 6.5 (4.5-7.5)
[2020-05-27] MEDS: MoRPHine SULFATE 2 MG/ML CARP IV PRN ×3 (16:25→23:36)
--- NOTE | 2020-05-27 17:17 | Communication Note ---
Date of Service: May 27, 2020 Patient admitted with small bowel obstruction/high-grade earlier today UA shows grossly positive, urine culture pending Patient ordered IV Jojo Arellano MD
[2020-05-27] MEDS ORDERED: COUGH DROP (SUGAR FREE) LOZ 24 LOZ/1 BOX BUCCAL STA (17:59)
[2020-05-27] MEDS: cefTRIAXone SODIUM 2,000 MG in DEXTROSE 5% 50 ML IV SCH (18:01)
[2020-05-27] MEDS: ACETAMINOPHEN 1,000 MG/100 ML VIAL IV SCH (18:11)
[2020-05-27] MEDS: CIPRO 0.3%/DEXAMETHASONE 0.1% OTIC SUSP 7.5ML OT SCH (18:55)
[2020-05-27] MEDS ORDERED: ENOXAPARIN INJ 30 MG/0.3 ML SYR SQ SCH (22:00)
[2020-05-28] MEDS: ACETAMINOPHEN 1,000 MG/100 ML VIAL IV SCH ×3 (02:32→20:19)
[2020-05-28] MEDS: MoRPHine SULFATE 2 MG/ML CARP IV PRN (06:00)
[2020-05-28] MEDS: NSS + 20MEQ KCL 20 MEQ/1,000 ML BAG IV SCH ×3 (06:04→21:45)
[2020-05-28 06:46] LABS: Estimated Average Glucose 100 mg/dl; Hemoglobin A1C 5.1 % (4.5-5.6)
[2020-05-28 07:14] LABS: Albumin Globulin Ratio 1.2 (0.9-2); Albumin Level 3.3 gm/dl (3.4-5.0); BUN Creatinine Ratio 11.7 (10-20); Bilirubin,Total 0.6 mg/dl (0.2-1); Calcium 6.7 mg/dl (8.5-10.1); Creatinine Clr Calc Pharmacy 98.4 ml/min; Est GFR (Non-African American) 101.8; Globulin 2.7 gm/dl (2.5-4.0); Magnesium 2.3 mg/dl (1.8-2.4); Potassium 3.7 mmol/L (3.5-5.1)
[2020-05-28 07:18] LABS: Basophils # (auto) 0.02 K/uL (0-0.2); Basophils % (auto) 0.4 %; Eosinophils # (auto) 0.08 K/uL (0-0.5); Eosinophils % (auto) 1.8 %; Hematocrit (blood only) 36.4 % (37-47); Hemoglobin 11.9 g/dL (12.0-16.0); Lymphocytes # (auto) 0.83 K/uL (1.2-3.4); Lymphocytes % (auto) 18.6 %; Mean Corpuscular Hemoglobin 31.7 pg (25-34); Mean Corpuscular Hgb Conc 32.7 g/dL (32-36); Mean Corpuscular Volume 97.1 fL (80-100); Mean Platelet Volume 9.6 fL (7.4-10.4); Monocytes # (auto) 0.38 K/uL (0.11-0.59); Monocytes % (auto) 8.5 %; Neutrophils # (auto) 3.15 K/uL (1.4-6.5); Neutrophils % (auto) 70.7 %; Platelet Count 255 K/uL (130-400); RDW Coefficient of Variation 14.4 % (11.5-14.5); RDW Standard Deviation 51.6 fL (36.4-46.3); Red Blood Count 3.75 M/uL (4.2-5.4); White Blood Count 4.46 K/uL (4.8-10.8)
--- NOTE | 2020-05-28 07:35 | Surgery Progress Note ---
Date of Service May 28, 2020 Assessment & Plan (1) Small bowel obstruction: moderate NG output, cont LIWS KUB pending recheck after KUB as above. KUB improved. only 250 cc's out of NGT in last 12 hours. feeling much better. abdomen soft. will try clamping trial and d/c ngt if less than 100 cc's residual. Admission and Anticipated Discharge Date Admission Date: May 27, 2020 Subjective c/o NG irritation, no abd pain, no flatus Physical Exam Gastrointestinal (Abdomen): Inspection/Auscultation: + abdomen distended (mild) Percussion/Palpation: abdomen soft; abdomen nontender Results & Data ([facility]) Vital Signs (Past 12 Hours) Vital Signs Temp Pulse Pulse Resp BP BP Pulse Ox 05/28/20 07:22 36.5 C 84 18 125/76 97 05/28/20 03:20 36.6 C 83 18 106/66 98 05/28/20 00:00 87 05/27/20 23:04 36.8 C 83 16 118/73 98 05/27/20 19:58 36.6 C 83 18 114/75 99 PG Care Time/CCT Total # of Minutes Spent Total Time Spent with Patient: Total time spent is greater than 50% in coordination of care (as documented) at patient's floor/unit and/or counseling patient: Coding Level of Care Code 36776 Subseq Hosp Care Lvl 2 Diagnoses Small bowel obstruction K56.609
[2020-05-28] MEDS: FOLIC ACID 1 MG in SYRINGE 9.8 ML IV SCH (08:02)
[2020-05-28] MEDS: CIPRO 0.3%/DEXAMETHASONE 0.1% OTIC SUSP 7.5ML OT SCH ×2 (08:02→20:19)
[2020-05-28] MEDS: FAMOTIDINE 20 MG in SYRINGE 3 ML IV SCH ×2 (08:02→20:23)
[2020-05-28] MEDS: THIAMINE HCL 100 MG in SYRINGE 9 ML IV SCH (08:03)
--- NOTE | 2020-05-28 08:55 | XRay Report ---
KUB HISTORY: NG tube placement. Small bowel obstruction. COMPARISON: Abdomen and pelvis CT 05/27/2020. FINDINGS: Nasogastric tube terminates below the diaphragm and may be in a postpyloric position. There are few nondilated gas-filled loops of small bowel within the left upper quadrant. There is gas and stool within the nondistended colon. No renal calculi. No ureteral calculi. Calcifications in the de ep pelvis likely represent phleboliths. No pneumoperitoneum or pneumatosis. IMPRESSION: Nasogastric tube terminates below the diaphragm and may be in a postpyloric position versus the gastr ic antrum. ACT 112: Negative or not required by law. Electronically signed by: Luis Dupont M.D. 05/28/2020 8:54 AM
[2020-05-28] MEDS: AMPICILLIN/SULBACTAM SOD 3,000 MG in 0.9 % SODIUM CHLORIDE 100 ML IV SCH ×3 (13:21→23:07)
--- NOTE | 2020-05-28 15:38 | Hospitalist Progress Note ---
Date of Service May 28, 2020 Assessment & Plan (1) Small bowel obstruction: per Dr. Pritchard notes: This is a 60-year-old female who has significant past medical history of lupus, osteoporosis, GERD, depression, alcohol abuse who presents to ED secondary to abdominal pain x9 hours. CT a/p: Moderately dilated fluid-filled proximal to mid small bowel with swirling of the small bowel loops and mesentery with transition point within the upper pelvis. This represents a high-grade small bowel obstruction. The appearance raises the possibility of an internal hernia although adhesions can result in a similar imaging appearance NGT placed in ED, seen and eval by surg -------- symptoms improving KUB shows some improvement of SBP as well Gen surg recommends clamping of NG tube continue NPO, IV fluids Hypokalemia repleted Otitis Media added Unasyn IV Day 1 continue to monitor response UTI Urine culture: gram negative bacilli Ceftriaxone IV Day 2 Alcohol Abuse drinks 1-2 glasses of wine daily given NPO status will be unable to give prophylaxis gabapentin place on AWSS protocol with prn ativan, high risk for withdrawal IV thiamine and folic acid, convert to PO when able to tolerate Lupus hydroxychloroquine on hold given NPO status resume when able Abnormal finding of CT a/p Several indeterminate hepatic lesions. The largest lesion may reflect a hemangioma however a neoplastic etiology cannot be excluded. Nonemergent liver MRI is recommended. Gerd IV pepcid BID Dispo: pending anticipate d/c home when medically stable PCP: Cori FULL CODE Dvt ppx: Lovenox 30mg SQ daily plan of care discussed with patient in detail and at length all questions answered she is understanding, agreeable, comfortable with the plan of care Admission and Anticipated Discharge Date Admission Date: May 27, 2020 Subjective ff up for SBO seen resting in bed, sitting up NGT in place states abdominal pain is much better, no nausea/vomiting, no flatus or BMs yet report increasing Left inner ear pair, radiating to left side of the upper neck and mandibular area, upper teeth reports some pain with swallowing no tongue swelling, shortness of breath no other symptoms Review of Systems Review of Systems: All systems reviewed & are unremarkable except as noted in Subjective Physical Exam Physical Exam: General- oriented x 3, not in distress, speaks in sentences with no effort or accessory muscle use Head- atraumatic Eyes- PERRL, EOMI, anicteric Face- no edema/erythema/tenderness ENT- Left ear: no tenderness of pinna, no edema; (+) fullness of TM, no discharge Right ear essentially normal Neck- supple, no JVD, (+) left submandibular LAD with mild tenderness no edema/erythema/warmth\ no thyromegaly; carotids +2/2, no bruits appreciated Lungs- clear to auscultation bilaterally, no rales/wheezes Heart- normal rate, regular rhythm; no murmur, no gallop, no rub appreciated Abdomen-(+) hypoactive bowel sounds, nondistended, soft, nontender, no masses or hepatosplenomegaly Extremities- no pretibial edema, no calf tenderness; peripheral pulses intact Neuro- alert, oriented x 3; CN 2-12 grossly intact; motor 5/5 bilaterally;sensation 100% on all extremities; no other gross focal neurologic deficits Skin- warm & dry Results & Data Results & Data ([facility]) Vital Signs (Past 12 Hours) Vital Signs Temp Pulse Pulse Resp BP Pulse Ox 05/28/20 11:40 36.4 C L 82 18 137/78 100 05/28/20 07:36 75 05/28/20 07:22 36.5 C 84 18 125/76 97 all noted and reviewed including below Laboratory Results Laboratory Results - last 24 hr 05/28/20 05/28/20 05/28/20 06:23 06:23 06:23 WBC 4.46 L RBC 3.75 L Hgb 11.9 L D Hct 36.4 L MCV 97.1 MCH 31.7 MCHC 32.7 RDW Std Deviation 51.6 H RDW Coeff of Negrito 14.4 Plt Count 255 MPV 9.6 Immature Gran % (Auto) 0.0 Neut % (Auto) 70.7 Lymph % (Auto) 18.6 [place] % (Auto) 8.5 Eos % (Auto) 1.8 Baso % (Auto) 0.4 Neut # (Auto) 3.15 Lymph # (Auto) 0.83 L [place] # (Auto) 0.38 Eos # (Auto) 0.08 Baso # (Auto) 0.02 Immature Gran # (Auto) 0.00 Sodium 144 Potassium 3.7 Chloride 117 H Carbon Dioxide 22 Anion Gap 5.0 BUN 6 L D Creatinine 0.54 L D Est Cr Clr Drug Dosing 98.4 Est GFR ( Amer) 118.0 Est GFR (Non-Af Amer) 101.8 BUN/Creatinine Ratio 11.7 Glucose 93 Estimat Average Glucose 100 Hemoglobin A1c 5.1 Calcium 6.7 L D Magnesium 2.3 Total Bilirubin 0.6 AST 10 L ALT 13 Alkaline Phosphatase 54 Total Protein 6.0 L D Albumin 3.3 L Globulin 2.7 Albumin/Globulin Ratio 1.2
[2020-05-28] MEDS: cefTRIAXone SODIUM 2,000 MG in DEXTROSE 5% 50 ML IV SCH (18:12)
[2020-05-28] MEDS: DULoxetine HCL 60 MG CAP PO SCH (20:18)
[2020-05-29] MEDS: ACETAMINOPHEN 1,000 MG/100 ML VIAL IV SCH ×2 (01:27→09:32)
[2020-05-29] MEDS: NSS + 20MEQ KCL 20 MEQ/1,000 ML BAG IV SCH ×2 (06:07→13:09)
[2020-05-29] MEDS: AMPICILLIN/SULBACTAM SOD 3,000 MG in 0.9 % SODIUM CHLORIDE 100 ML IV SCH ×2 (06:08→11:19)
[2020-05-29] MEDS: THIAMINE HCL 100 MG in SYRINGE 9 ML IV SCH (08:12)
[2020-05-29] MEDS: FOLIC ACID 1 MG in SYRINGE 9.8 ML IV SCH (08:12)
[2020-05-29] MEDS: CIPRO 0.3%/DEXAMETHASONE 0.1% OTIC SUSP 7.5ML OT SCH (08:13)
[2020-05-29] MEDS: DULoxetine HCL 60 MG CAP PO SCH (08:13)
[2020-05-29] MEDS: FAMOTIDINE 20 MG in SYRINGE 3 ML IV SCH (08:15)
--- NOTE | 2020-05-29 10:29 | Surgery Progress Note ---
Date of Service May 29, 2020 Assessment & Plan (1) Small bowel obstruction: Clinically doing much better. Small bowel obstruction appears to have resolved. We will advance her diet. Discharge planning per primary service. I would really prefer she have a bowel movement prior to discharge. Admission and Anticipated Discharge Date Admission Date: May 27, 2020 Subjective Patient seen. She is feeling great and actually would like to go home. No bowel movements yet. She is tolerating liquid diet. She has no nausea no abdominal pain Physical Exam Physical Exam: Alert. No acute distress Abdomen is soft. Nontender nondistended with positive bowel sounds Results & Data ([facility]) Vital Signs (Past 12 Hours) Vital Signs Temp Pulse Pulse Resp BP BP Pulse Ox 05/29/20 07:24 73 05/29/20 07:23 36.7 C 77 18 130/77 97 05/29/20 03:12 36.7 C 74 18 113/67 95 05/28/20 23:00 36.9 C 78 18 114/69 95 PG Care Time/CCT Total # of Minutes Spent Total Time Spent with Patient: Total time spent is greater than 50% in coordination of care (as documented) at patient's floor/unit and/or counseling patient: Coding Level of Care Code 40851 Subseq Hosp Care Lvl 2 Diagnoses Small bowel obstruction K56.609
--- NOTE | 2020-05-29 13:07 | Hospitalist Progress Note ---
Date of Service May 29, 2020 Assessment & Plan (1) Small bowel obstruction: per Dr. Pritchard notes: This is a 60-year-old female who has significant past medical history of lupus, osteoporosis, GERD, depression, alcohol abuse who presents to ED secondary to abdominal pain x9 hours. CT a/p: Moderately dilated fluid-filled proximal to mid small bowel with swirling of the small bowel loops and mesentery with transition point within the upper pelvis. This represents a high-grade small bowel obstruction. The appearance raises the possibility of an internal hernia although adhesions can result in a similar imaging appearance NGT placed in ED, seen and eval by surg -------- symptoms improving KUB shows some improvement of SBP as well Gen surg recommends clamping of NG tube continue NPO, IV fluids Hypokalemia repleted Otitis Media added Unasyn IV Day 1 continue to monitor response UTI Urine culture: gram negative bacilli Ceftriaxone IV Day 2 Alcohol Abuse drinks 1-2 glasses of wine daily given NPO status will be unable to give prophylaxis gabapentin place on AWSS protocol with prn ativan, high risk for withdrawal IV thiamine and folic acid, convert to PO when able to tolerate Lupus hydroxychloroquine on hold given NPO status resume when able Abnormal finding of CT a/p Several indeterminate hepatic lesions. The largest lesion may reflect a hemangioma however a neoplastic etiology cannot be excluded. Nonemergent liver MRI is recommended. Gerd IV pepcid BID Dispo: pending anticipate d/c home when medically stable PCP: Cori FULL CODE Dvt ppx: Lovenox 30mg SQ daily plan of care discussed with patient in detail and at length all questions answered she is understanding, agreeable, comfortable with the plan of care (2) Alcohol abuse: (3) Depression: (4) Lupus: (5) Otitis media: (6) GERD (gastroesophageal reflux disease): (7) Osteoporosis: (8) DVT prophylaxis: Admission and Anticipated Discharge Date Admission Date: May 27, 2020 Subjective 60 yo F presented with SBO had BM today SBO has resolved followed by Surgery team while in the hospital tolerating PO Results & Data Results & Data ([facility]) Vital Signs (Past 12 Hours) Vital Signs Temp Pulse Pulse Resp BP Pulse Ox 05/29/20 10:51 36.5 C 70 18 154/80 H 100 05/29/20 07:24 73 05/29/20 07:23 36.7 C 77 18 130/77 97 05/29/20 03:12 36.7 C 74 18 113/67 95 Medications Administered Current Inpatient Medications Ciprofloxacin/Dexamethasone (Cipro 0.3%/Dexamethasone 0.1% Otic Susp 7.5ml) 4 drops OT BID ANDREW Stop: 06/26/20 17:59 Last Admin: 05/29/20 08:13 Dose: 4 drops Documented by: Duloxetine HCl (Duloxetine Hcl 60 Mg Cap) 60 mg PO DAILY ANDREW Stop: 06/27/20 18:14 Last Admin: 05/29/20 08:13 Dose: 60 mg Documented by: Lorazepam (Ativan) 1 mg in 2 mls @ 2 mls/min IV ONE PRN; Protocol PRN Reason: EtoH Withdrawal AWSS 6-10 Stop: 06/26/20 09:12 Ceftriaxone Sodium 2,000 mg/ (Dextrose) 70 mls @ 100 mls/hr IV Q24H [facility]; Protocol Stop: 06/01/20 17:59 Last Infusion: 05/28/20 18:54 Dose: Infused Documented by: Ampicillin Sodium/Sulbactam Sodium 3,000 mg/ Sodium Chloride 108 mls @ 200 mls/hr IV Q6H [facility]; Protocol Stop: 06/07/20 11:59 Last Infusion: 05/29/20 11:57 Dose: Infused Documented by: Morphine Sulfate (Morphine Sulfate 2 Mg/Ml Carp) 2 mg IV Q4H PRN PRN Reason: severe pain Stop: 06/10/20 09:12 Last Admin: 05/28/20 06:00 Dose: 2 mg Documented by: Ondansetron HCl (Ondansetron Inj 2 Mg/Ml 2 Ml Vial) 4 mg IV Q6H PRN PRN Reason: Nausea Stop: 06/26/20 09:12 Phenol (Chloraseptic 1.4% Soln 180 Ml Btl) 2 sprays MT Q3H PRN PRN Reason: Sore Throat Stop: 06/26/20 12:32 Last Admin: 05/27/20 13:46 Dose: 2 sprays Documented by:
--- NOTE | 2020-05-29 14:06 | Discharge Summary ---
Date of Service May 29, 2020 Admission HPI Per Admitting Provider This is a 60-year-old female who has significant past medical history of lupus, osteoporosis, GERD, depression, alcohol abuse who presents to ED secondary to abdominal pain x9 hours. Pain started shortly after eating dinner last evening located mostly in right upper quadrant and radiated around back. Pain was constant but gradually worsened throughout the evening. She then developed nausea and significant vomiting. She recalls having similar symptoms approximately 2 years ago when out in [place]. At that time she had x-ray and there was concern for possible small bowel obstruction but she did not require hospitalization and symptoms resolved on own. She denies any recent fever, chills, sweats, lightheadedness, dizziness, chest pain, shortness breath, cough, URI symptoms, melena, medic easier, dysuria, increased urgency or frequency with urination, hematemesis. She has not had a normal bowel movement in the past 3 to 4 days. Her last BM was yesterday but was very small. is at bedside and states that she has been having off-and-on constipation for the past year. He relates this to her connective tissue disease. Her appetite has otherwise been poor. She does drink significant alcohol approximately 1 bottle of wine daily. Last drink was yesterday.In ED work-up revealed moderately dilated fluid-filled proximal to mid small bowel with swirling of the small bowel loops and mesentery with transition point in upper pelvis. High-grade small bowel obstruction is likely. Also noted with several indeterminate hepatic lesions and a nonemergent liver MRI is recommended. She received IV fluid and IV morphine which improved pain. NG tube was also placed although patient tolerating poorly secondary to gagging and dry mouth. She did receive IV Ativan to assist with this. She was seen and evaluated by general surgery who is recommending conservative management at this time with bowel rest and NG tube. Admission Exam Per Admitting Provider Constitutional: Thin, WD, F, vitals as above, NAD, sitting up in bed, answers questions appropriately Head: Normocephalic, Atraumatic Eyes: PERRL, conjunctivae normal, anicteric sclerae ENMT: external ear and nose normal, +NGT in place, oropharynx normal dry mouth Neck: trachea midline, no thyromegaly normal visual inspection Respiratory: normal respiratory effort, lungs clear to auscultation, no wheeze, rales, rhonchi. Normal insp/exp effort, no accessory muscle use Cardiovascular: RRR, no murmur, no edema Vessels: no JVD or carotid bruit Chest: normal inspection of chest Abdomen: absent bowel sounds, soft, nontender, no hepatosplenomegaly appreciated Musculoskeletal: no cyanosis or clubbing, extremities motor strength 5/5 Skin: no rashes, warm and dry normal turgor Neurologic: PERRL, EOMI, accommodation nl, no face palsy, no dysarthria CN's II-XI intact bilaterally and moves all extremities Psychiatric: A+Ox3, euthymic affect Lymphatic: no cervical or axillary lymphadenopathy : deferred Principal Diagnosis Small Bowel Obstruction Otitis Media Klebsiella UTI Discharge Exam CONSTITUTIONAL: WNWD, vitals stable, generally well-appearing EYES: PERRL, normal conjunctivae, no scleral icterus ENT: external ear and nose normal, oropharynx clear, no TM abnormality, no maxillary or ethmoid sinus tenderness NECK: trachea midline, no lymphadenopathy RESPIRATORY: clear to auscultation bilaterally, no crackles, rales or wheezes, normal respiratory effort CARDIOVASCULAR: regular rate and rhythm, S1 and 2 heard without murmurs, gallops or rubs, no JVD, no peripheral edema GASTROINTESTINAL: soft, nontender, nondistended, no guarding MUSCULOSKELETAL: strength 5/5 throughout, head is normocephalic and atraumatic, ambulating around the room without difficulty. SKIN: warm and dry NEUROLOGIC: CN 2-12 grossly intact, no gross focal deficits. PSYCHIATRIC: alert cooperative and oriented to person, place and time. Discharge Data Allergies Allergy/AdvReac Type Severity Reaction Status Date / Time Sulfa (Sulfonamide Allergy Unknown Unknown Verified 05/27/20 08:55 Antibiotics) Consultations 05/27/20 07:54 Consult General Surgery Stat 05/27/20 08:11 ED Decision to Admit Stat Ordered Studies 05/27/20 05:59 CT abd pelvis IV con only Stat Hospital Course (1) Small bowel obstruction: The patient is a 60-year-old female who presented to the ER with vomiting and pain in her backside and arm with right foot numbness. Upon work-up CBC and BMP were normal and a CT of the abdomen pelvis with contrast was performed revealing moderately dilated fluid-filled bowel with a transition point in the upper pelvis representing a high-grade small bowel obstruction. The appearance of this raised the possibility of an internal hernia although adhesions could result in a similar imaging appearance. No pneumatosis free air or portal venous gas was seen and there was no bowel wall thickening. She also had several indeterminate hepatic lesions the largest thought to reflect a hemangioma however a neoplastic etiology could not be excluded. A nonemergent liver MRI was recommended. This was disclosed to the patient at discharge he verbalized understanding with intent to comply. General surgery was consulted and she underwent NG tube placement. On hospital day 2 it appeared her small bowel obstruction had resolved. Her NG tube was withdrawn and her diet was advanced. She was able to have a bowel movement prior to discharge. At time of discharge she was mentating and ambulating at baseline and tolerating p.o. She was hemodynamically stable and afebrile and oxygenating well on room air. Close primary care follow-up was recommended to ensure she was still doing well post hospital discharge. Of note during the admission she was also found to have a Klebsiella UTI and reported some ear pain and was placed on antibiotics for suspected otitis media. She was discharged on a course of cefdinir. Symptoms of ear pain had already started to dissipate prior to discharge. (2) Otitis media: (3) UTI due to Klebsiella species: Total Time Total Time Spent Total Time Spent (In Minutes): 60 Total Time Includes: Examination of the Patient, Discharge Planning, Medication Reconciliation and Communication With Other Providers Discharge Plan Discharge Items Patient Disposition: Home - Self-Care Reason For Visit: SBO Discharge Diagnosis: Small Bowel Obstruction Otitis Media Klebsiella UTI Condition on Discharge: Good Activity: Resume your previous activity Non-emergency contact: Primary Care Provider Call non-emergency contact if: you have any medication questions, your symptoms worsen, your pain is not controlled, your pain is worsening, your pain is unusual for you, your pain is concerning for you and you have a fever Follow-up/Referrals: Megan Persaud DO [Primary Care Provider] - (Date & Time 06/05/2020 11:20 AM Provider Megan Persaud DO Department [facility] ) Diet: Low Fiber Addtl Attending Provider Instructions: Please take all medications as instructed on discharge list below. Please follow-up with your primary care provider (PCP) at the date/time above to ensure you are still doing well after discharge home from the hospital. You were found to have several nonemergent liver lesions on imaging while hospitalized. To better discern what these are, a nonemergent liver MRI is recommended and may be ordered by your PCP at hospital followup. It was a pleasure taking care of you! Please call if you have any questions or problems. You can reach a [facility] hospitalist on duty at [facility] 24 hours a day by calling [phone]. Take care of yourself. Shaneka Menezes, DO [facility] Pending Studies at Discharge: No Stand-Alone Forms: My [facility] Medications and DC Order Prescriptions: New cefdinir 300 mg capsule 300 mg PO BID Qty: 10 RF: 0 Continued duloxetine [Cymbalta] 60 mg capsule,delayed release(DR/EC) 60 mg PO DAILY Qty: 30 RF: 2 famotidine 20 mg tablet 20 mg PO BID RF: 0 ergocalciferol (vitamin D2) 1,250 mcg (50,000 unit) capsule 1,250 mcg PO WK RF: 0 hydroxychloroquine 200 mg tablet See Rx Instructions .ROUTE .COMPLEX RF: 0 Discharge Orders: Discharge Order (Routine); Ordered 05/29/20 Ordered By: Shaneka Shahid/Other Patient Handouts: Small Bowel Obstruction Admission Data Admit Date/Time: 05/27/20 08:15 Attending Provider: Shaneka Menezes Admit Provider: Jojo Pritchard Primary Care Provider: Megan Persaud Other Providers: Art Dan Other Interventions: Discharge Summary Assessment (RN) Last Done: 05/29/20 14:16
== END 2020-05-29 14:45 | disposition home or self-care (01) | DRG 389 ==
LOC: ED 05:38 → SUATTDRO 08:15 → 2W 08:15